=== PATIENT | male | born 1955 | race Asian ===

== ENCOUNTER 2024-01-26 09:42 | Emergency (ER) | payer OTHER ==
[~2024-01-26] VITALS: Ht 182.9 cm; Wt 81.0 kg
[2024-01-26 09:46] VITALS: BP 142/85; PULSE 68; RESP 18; TEMP 98.1; O2SAT 98
[2024-01-26] MEDS: ACETAMINOPHEN 325MG TABLET PO ONE (10:30)
== END 2024-01-26 11:56 | disposition home or self-care (01) ==
LOC: ER 09:42
DX: S69.91XA Unspecified injury of right wrist, hand and finger(s), initial encounter (principal); E11.9 Type 2 diabetes mellitus without complications; V49.9XXA Car occupant (driver) (passenger) injured in unspecified traffic accident, initial encounter; Y93.89 Activity, other specified; Y92.89 Other specified places as the place of occurrence of the external cause; Y99.8 Other external cause status
CPT/HCPCS: 29130; 73140; 99283